=== PATIENT | male | born 1970 | race Caucasian/White ===

== ENCOUNTER 2021-01-29 22:07 | Emergency (ER) | payer OTHER ==
[2021-01-29 22:12] VITALS: TEMP 97.6; BMI 33.6
[2021-01-29] MEDS ORDERED: MECLIZINE HCL 25 MG TABLET (FP) PO ONE (23:36)
[2021-01-29] MEDS ORDERED: MECLIZINE HCL 25 MG TABLET (FP) ONE (23:39)
[2021-01-30 00:01] VITALS: BP 162/96; PULSE 78
== END 2021-01-30 00:31 | disposition home or self-care (01) ==
LOC: JER 22:07
DX: H81.12 Benign paroxysmal vertigo, left ear (principal)
CPT/HCPCS: 93005; 93010; 99283-25